=== PATIENT | female | born 1995 | race Caucasian/White ===

== ENCOUNTER 2016-12-30 11:09 | Emergency (ER) | payer BC, OTHER ==
[~2016-12-30] VITALS: Ht 165.1 cm; Wt 70.5 kg
[2016-12-30 11:13] VITALS: TEMP 37.6; Ht 165.1 cm; Wt 70.5 kg
[2016-12-30] MEDS ORDERED: KETOROLAC TROMETHAMINE 30 MG/ML VIAL IV STA (11:34)
[2016-12-30 11:38] VITALS: O2SAT 98
[2016-12-30 11:57] LABS: BASO % 0.1 %; BASO ABS # 0.02 K/uL (0-0.2); COMPLETE YES; EOS % 0.3 %; HEMATOCRIT 37.2 % (37-47); IG% 0.3 %; LYMPH ABS # 2.15 K/uL (1.2-3.4); MEAN CELL VOLUME 86.1 fL (80-100); MEAN CORPUSCULAR HEMOGLOBIN 29.9 pg (25-34); MEAN CORPUSCULAR HGB CONC 34.7 g/dl (32-36); MEAN PLATELET VOLUME 10.1 fL (7.4-10.4); MONO % 9.5 %; NEUT % 77.8 %; PLATELET COUNT 289 K/uL (130-400); RED BLOOD COUNT 4.32 M/uL (4.2-5.4); WHITE BLOOD COUNT 17.87 K/uL (4.8-10.8)
[2016-12-30] MEDS ORDERED: CETI10TA84 PO (12:16)
[2016-12-30] MEDS ORDERED: TRIA1SPR4 NAE (12:16)
[2016-12-30] MEDS ORDERED: FLUT115A INH (12:16)
[2016-12-30 12:33] LABS: BUN/CREATININE RATIO 11.6 (10-20); CALCIUM 8.6 mg/dl (8.5-10.1); CREATININE 0.89 mg/dl (0.60-1.20); POTASSIUM 3.8 mmol/L (3.5-5.1)
--- NOTE | 2016-12-30 13:19 | DIAGNOSTIC IMAGING REPORT ---
CHEST 2 VIEWS ROUTINE CLINICAL HISTORY: cough dyspnea COMPARISON STUDY: No previous studies for comparison. FINDINGS: Small parenchymal infiltrate left base. Lungs otherwise appear clear. No evidence for cardiac enlargement. IMPRESSION: Small parenchymal infiltrate left base. Electronically signed by: Melvin Johnson M.D. 12/30/2016 1:17 PM Dictated Date/Time: 12/30/2016 1:15 PM
[2016-12-30] MEDS ORDERED: ALBUTEROL HFA 8 GM INHALER INH STA (13:31)
[2016-12-30] MEDS ORDERED: DOXY100C2 PO (13:32)
[2016-12-30] MEDS ORDERED: DOXYCYCLINE HYCLATE 100 MG CAP PO ONE (13:45)
[2016-12-30 13:52] VITALS: BP 118/85; PULSE 100; O2SAT 99
--- NOTE | 2016-12-30 15:24 | EMERGENCY ROOM VISIT NOTE ---
History First contact with patient: 11:25 Chief Complaint: CHEST PAIN Stated Complaint: CHEST PAIN IN UPPER LEFT AREA Nursing Triage Summary: Pt reports L sided chest pain radiating into L arm/shoulder began last evening at approx 9pm. Pt reports with deep breaths pain is rated 7/10, at rest rated 3/10. Pt also reports recent cold symptoms. History of Present Illness The patient is a 21 year old female who presents to the Emergency Room with complaints of cough, left-sided chest pain and increased pain with inspiration for the past 2 days who was seen at urgent care and sent here who was given aspirin there. Patient states she's had a productive cough past few days. Patient denies leg pain or swelling, abdominal pain, sore throat, headache, neck stiffness, back pain, fever, chills. She has traveled recently. No control. No family history of heart disease or blood clots. Review of Systems See HPI for pertinent positives & negatives. A total of 10 systems reviewed and were otherwise negative. Past Medical/Surgical History Asthma Social History Smoking Status: Never Smoker Smokeless Tobacco Use: No Alcohol Use: occasionally Drug Use: none Occupation Status: [employer] Current/Historical Medications Scheduled Cetirizine (Zyrtec), 10 MG PO DAILY Doxycycline Hyclate (Vibramycin), 100 MG PO BID Fluticasone-Salmeterol 115/21 Mcg (Advair Hfa 115/21 Mcg), 1 PUFF INH BID Triamcinolone Acetonide (Nasal (Nasacort Allergy 24Hr), 1 SPRAY GINGER DAILY Allergies Coded Allergies: No Known Allergies (Unverified , 12/30/16) Physical Exam Vital Signs Date Time Temp Pulse Resp B/P Pulse Ox O2 Delivery O2 Flow Rate FiO2 12/30/16 13:52 100 18 118/85 99 12/30/16 12:28 100 20 110/69 100 Room Air 12/30/16 11:50 101 12/30/16 11:38 98 Room Air 12/30/16 11:38 98 Room Air 12/30/16 11:28 99 Room Air 12/30/16 11:13 37.6 108 18 117/77 97 Room Air Pain Rating (0-10): 4.0 Physical Exam VITALS: Vitals are noted on the nurse's note and reviewed by myself. Vital signs stable. GENERAL: Pleasant female, in no acute distress, nondiaphoretic, well-developed well-nourished. SKIN: The skin was without rashes, erythema, edema, or bruising. There is no tenting of the skin. Capillary reflex less than 2 seconds. HEAD: Normocephalic atraumatic. EARS: External auditory canals clear, tympanic membranes pearly harris without erythema or effusion bilaterally. EYES: Pupils equal round and reactive to light and accommodation. Conjunctivae without injection, sclerae without icterus. Extraocular movements intact. NOSE: Patent, turbinates without inflammation or discharge. No sinus tenderness. MOUTH: Mucous membranes moist. Pharynx without erythema or exudate. Uvula midline. Airway patent. Tongue does not deviate. NECK: Supple without nuchal rigidity. No lymphadenopathy. No thyromegaly. Cervical spine is nontender. No JVD. HEART: Regular rate and rhythm without murmurs gallops or rubs. Chest nontender to palpation LUNGS: Clear to auscultation bilaterally without wheezes, rales or rhonchi. No dullness to percussion. No retractions or accessory muscle use. ABDOMEN: Positive bowel sounds x 4. Normal tympanic percussion. Soft, nontender, without masses or organomegaly. Cooper sign negative. No guarding or rebound tenderness. MUSCULOSKELETAL: No muscle atrophy, erythema, or edema noted. NEURO: Patient was alert and oriented to person place and time. Normal sensation to light and sharp touch. No focal neurological deficits. Medical Decision & Procedures Laboratory Results 12/30/16 11:39 Red Blood Count 4.32, Mean Corpuscular Volume 86.1, Mean Corpuscular Hemoglobin 29.9, Mean Corpuscular Hemoglobin Concent 34.7, Mean Platelet Volume 10.1, Neutrophils (%) (Auto) 77.8, Lymphocytes (%) (Auto) 12.0, Monocytes (%) (Auto) 9.5, Eosinophils (%) (Auto) 0.3, Basophils (%) (Auto) 0.1, Neutrophils # (Auto) 13.89, Lymphocytes # (Auto) 2.15, Monocytes # (Auto) 1.69, Eosinophils # (Auto) 0.06, Basophils # (Auto) 0.02 12/30/16 11:39 Test 12/30/16 11:35 12/30/16 11:39 12/30/16 11:46 Urine Test NEG (NEG) White Blood Count 17.87 K/uL (4.8-10.8) Red Blood Count 4.32 M/uL (4.2-5.4) Hemoglobin 12.9 g/dL (12.0-16.0) Hematocrit 37.2 % (37-47) Mean Corpuscular Volume 86.1 fL (80-100) Mean Corpuscular Hemoglobin 29.9 pg (25-34) Mean Corpuscular Hemoglobin Concent 34.7 g/dl (32-36) Platelet Count 289 K/uL (130-400) Mean Platelet Volume 10.1 fL (7.4-10.4) Neutrophils (%) (Auto) 77.8 % Lymphocytes (%) (Auto) 12.0 % Monocytes (%) (Auto) 9.5 % Eosinophils (%) (Auto) 0.3 % Basophils (%) (Auto) 0.1 % Neutrophils # (Auto) 13.89 K/uL (1.4-6.5) Lymphocytes # (Auto) 2.15 K/uL (1.2-3.4) Monocytes # (Auto) 1.69 K/uL (0.11-0.59) Eosinophils # (Auto) 0.06 K/uL (0-0.5) Basophils # (Auto) 0.02 K/uL (0-0.2) RDW Standard Deviation 43.1 fL (36.4-46.3) RDW Coefficient of Variation 13.6 % (11.5-14.5) Immature Granulocyte % (Auto) 0.3 % Immature Granulocyte # (Auto) 0.06 K/uL (0.00-0.02) Anion Gap 6.0 mmol/L (3-11) Est Creatinine Clear Calc Drug Dose 98.5 ml/min Estimated GFR () 107.4 Estimated GFR (Non- 92.6 BUN/Creatinine Ratio 11.6 (10-20) Calcium Level 8.6 mg/dl (8.5-10.1) Total Bilirubin 0.9 mg/dl (0.2-1) Direct Bilirubin 0.2 mg/dl (0-0.2) Aspartate Amino Transf (AST/SGOT) 6 U/L (15-37) Alanine Aminotransferase (ALT/SGPT) 20 U/L (12-78) Alkaline Phosphatase 82 U/L (45-117) Total Protein 7.9 gm/dl (6.4-8.2) Albumin 3.7 gm/dl (3.4-5.0) Lipase 92 U/L (73-393) Bedside D-Dimer 235 ng/mlFEU (0-450) Medications Administered Medications (Trade) Dose Ordered Sig/Joycelyn Route Start Time Stop Time Status Last Admin Dose Admin Ketorolac Tromethamine (Toradol Inj) 30 mg NOW STAT IV 12/30/16 11:34 12/30/16 11:37 DC 12/30/16 11:46 30 MG Doxycycline Hyclate (Vibramycin Cap) 100 mg ONE ONCE PO 12/30/16 13:45 12/30/16 13:46 DC 12/30/16 13:47 100 MG Albuterol (Ventolin Hfa Inhaler) 2 puffs ONE STAT INH 12/30/16 13:31 12/30/16 13:32 DC 12/30/16 13:45 2 PUFFS ED Course Prior records/ancillary studies reviewed. Triage Nursing notes reviewed. Additional history obtained from friends. The patient's history was concerning for chest pain. Differential diagnosis: Etiologies such as cardiac ischemia, aortic dissection, pulmonary embolism, pneumonia, pneumothorax, musculoskeletal, infections, pericarditis, myocarditis , esophageal rupture, gastrointestinal, as well as others were entertained. Physical examination: As above. ER treatment provided: Toradol, fluids, doxycycline On reassessment the patient felt better. Diagnostic interpretation by me: The electrocardiogram was negative for pathologic change. Normal sinus, normal intervals, no acute ST-T wave changes. Impression normal sinus rhythm interpreted by myself The labs revealed leukocytosis, negative d-dimer, negative troponin Imaging studies: Chest x-ray as above CHEST 2 VIEWS ROUTINE CLINICAL HISTORY: cough dyspnea COMPARISON STUDY: No previous studies for comparison. FINDINGS: Small parenchymal infiltrate left base. Lungs otherwise appear clear. No evidence for cardiac enlargement. IMPRESSION: Small parenchymal infiltrate left base. Electronically signed by: Melvin Johnson M.D. Exam and history seem consistent with pneumonia. Patient was started on antibiotics. Normal EKG. Negative d-dimer. Negative troponin. She was not septic appearing. She is well-appearing. Patient agrees to treatment plan of taking medications as directed and to follow-up health services in a few days or here in the ER sooner for chest pain, difficulty breathing, fevers, worsening signs or symptoms or as needed.By the evaluation outlined above emergent etiologies such as cardiac ischemia, aortic dissection, pulmonary embolism, pneumothorax, pericarditis, myocarditis, gastrointestinal, as well as others were deemed relatively unlikely. The pt informed about the findings as listed above. All questions were answered and pleased with the treatment. Return instructions were outlined and the patient was discharged in stable condition. Outpatient prescription management: Doxycycline Referral: The patient was referred back to primary care physician for follow-up in 2 to 3 days for a recheck of the current condition. Urban reviewed with my attending Medical Decision As above Impression Primary Impression: Pneumonia involving left lung Departure Information Dispostion Home / Self-Care Condition GOOD Prescriptions Doxycycline Hyclate (VIBRAMYCIN) 100 Mg Cap 100 MG PO BID for 7 Days, #14 CAP Prov: Jessy Gallegos .STEPHEN 12/30/16 Forms HOME CARE DOCUMENTATION FORM, School Instructions, Return To School: 2 days IMPORTANT VISIT INFORMATION Patient Instructions Pneumonia, My [facility] Additional Instructions Doxycycline 100mg: Take one pill twice daily for seven days for your infection. Take with food, but avoid dairy. Avoid prolonged sun exposure since this medication makes you temporarily more susceptible to sunburns. All antibiotics can cause diarrhea. If this occurs and you feel worse or it does not resolve in 1-2 days follow up with your doctor or return to the Emergency Department as this could be signs of serious underlying problems. Any medication can cause an allergic reaction, stop the pills immediately and return to the ER for rash, hives, breathing difficulties, or swelling. Albuterol Inhaler: Take 2 puffs four times daily for seven days, then as needed. Acetaminophen(Tylenol) may be used for fever or pain. Use 1000mg every six hours as needed. Avoid using more than 3000mg in a 24 hour period. AND/OR Ibuprofen(Motrin, Advil) may be used for fever or pain. Use 600mg every six hours as needed. Take with food. Avoid using more than 2400mg in a 24 hour period. Do not use 2400mg per day for more than three consecutive days without physician direction. Prolonged inappropriate use can lead to stomach upset or ulcers. Controlling your fever with Tylenol and Ibuprofen as above will make you feel better. Rest and drink plenty of fluids. Avoid strenuous activity until your symptoms resolve and your breathing returns to normal. Continue current medications. Return to the ER for chest pain, difficulty breathing, persistent fevers, vomiting, worsening of your condition, or as needed. Follow-up with family care in 2-3 days. School Instructions Return To School: 2 days Problem Qualifiers Primary Impression: Pneumonia involving left lung Pneumonia type: due to unspecified organism Lung location: lower lobe of lung Qualified Codes: J18.1 - Lobar pneumonia, unspecified organism
== END 2016-12-30 13:53 | disposition home or self-care (01) ==
LOC: C.EDB 11:11 → C.EDC 13:53
DX: J18.1 Lobar pneumonia, unspecified organism (principal); J45.909 Unspecified asthma, uncomplicated; Z79.899 Other long term (current) drug therapy